=== PATIENT | male | born 1945 | race Caucasian/White ===

== ENCOUNTER 2016-09-09 14:29 | Emergency (ER) | payer MEDICARE, BC ==
[~2016-09-09] VITALS: Ht 182.9 cm; Wt 113.2 kg
[2016-09-09] MEDS ORDERED: CHILDREN'S ASPI81 M1 PO (15:00)
[2016-09-09] MEDS ORDERED: THE MEDICINE S300 M1 PO (15:00)
[2016-09-09] MEDS ORDERED: PLAVIX300 MG PO (15:00)
[2016-09-09] MEDS ORDERED: VITAMIN C1000 M3 PO (15:01)
[2016-09-09] MEDS ORDERED: VITAMIN D32000 UNIT PO (15:01)
[2016-09-09] MEDS ORDERED: HCTZ 25MG25 MG PO (15:01)
[2016-09-09] MEDS ORDERED: FLONASE ALLERG9.9 ML NS (15:01)
[2016-09-09] MEDS ORDERED: COQ-10100 MG PO (15:02)
[2016-09-09] MEDS ORDERED: COZAAR 50MG50 MG/TAB PO (15:02)
[2016-09-09] MEDS ORDERED: NORCO 325 MG-51 TA1 PO (15:31)
[2016-09-09 15:38] VITALS: BP 138/87
== END 2016-09-09 15:39 | disposition home or self-care (01) ==
LOC: ED 14:29
DX: S61.411A Laceration without foreign body of right hand, initial encounter (principal); Z79.02 Long term (current) use of antithrombotics/antiplatelets; W31.2XXA Contact with powered woodworking and forming machines, initial encounter; Y92.009 Unspecified place in unspecified non-institutional (private) residence as the place of occurrence of the external cause
CPT/HCPCS: 90715

== ENCOUNTER → 2023-02-05 | Outpatient (CLI) | payer MEDICARE, BC ==
[~2023-02-05] MED LIST: CHILDREN'S ASPI81 M1 PO; COQ-10100 MG PO; COZAAR 50MG50 MG/TAB PO; FLONASE ALLERG9.9 ML NS; HCTZ 25MG25 MG PO; NORCO 325 MG-51 TA1 PO; PLAVIX300 MG PO; THE MEDICINE S300 M1 PO; VITAMIN C1000 M3 PO; VITAMIN D32000 UNIT PO
== END ==
LOC: RAD 10:35
DX: M50.30 Other cervical disc degeneration, unspecified cervical region (principal)